=== PATIENT | female | born 1990 | race Caucasian/White ===

== ENCOUNTER 2016-08-05 18:43 | Emergency (ER) | payer OTHER ==
[~2016-08-05 18:43] MED LIST: ALBUTEROL0.09 MG/A2 INH; AMOXICILLIN500 MG PO; AMOXIL500 MG PO; ANTIVERT25 MG PO; ATARAX25 MG PO; ATIVAN0.5 MG PO; AUGMENTIN 500 M1 TAB PO; AUGMENTIN 875 M1 TA1 PO; BACTRIM DS 8001 TA1 PO; BENTYL10 MG PO; BIRTH CONTROL1 EAC1 PO; CATAFLAM50 MG PO; CIPROFLOXACIN500 MG PO; CLARITIN10 MG PO; CLEOCIN HCL150 MG PO; COMPAZINE10 MG PO; CYCLOBENZAPRINE10 MG PO; DIFLUCAN150 MG PO; FLAGYL500 MG PO; FLEXERIL10 MG PO; HYDROCODONE BIT1 T11 PO; HYDROXYZINE HCL25 MG PO; IBUPROFEN600 MG PO; LIDEX0.05% T; MOTRIN800 MG PO; Motrin,Rufen800 MG PO; NAPROSYN500 MG PO; NAPROXEN500 M1 PO; NASONEX0.05 MG/AC NS; PENICILLIN VK500 MG PO; PNV-SELECT1 TAB PO; PREDNISONE20 M1 PO; PROAIR HFA8.5 GM INH; PYRIDIUM200 MG PO; Percocet 325 MG1 TAB PO; SERTRALINE HYDR25 MG PO; TRI-SPRINTEC 281 TAB PO; VENTOLIN 02.5 MG/3 M INH; VENTOLIN0.09 MG/AC IH; ZITHROMAX Z PA250 MG PO; ZITHROMAX250 MG PO; ZOFRAN ODT4 MG SL; ZOFRAN4 MG PO; ZOLOFT50 MG PO; Zofran4 MG PO
[2016-08-05] MEDS ORDERED: KENALOG 0.1%80 GM T (20:04)
[2016-08-05] MEDS ORDERED: ALLERGY MEDICAT25 M1 PO (20:04)
== END 2016-08-05 20:38 | disposition home or self-care (01) ==
LOC: ED 18:43
DX: L24.7 Irritant contact dermatitis due to plants, except food (principal); F41.9 Anxiety disorder, unspecified

== ENCOUNTER 2016-10-10 18:22 | Emergency (ER) | payer OTHER ==
[~2016-10-10] VITALS: Ht 172.7 cm; Wt 104.3 kg
[~2016-10-10 18:22] MED LIST changes: +ALLERGY MEDICAT25 M1 PO; +KENALOG 0.1%80 GM T
[2016-10-10] MEDS ORDERED: PREDNISONE10 MG PO (20:16)
== END 2016-10-10 20:19 | disposition home or self-care (01) ==
LOC: ED 18:22
DX: S29.019A Strain of muscle and tendon of unspecified wall of thorax, initial encounter (principal); F17.200 Nicotine dependence, unspecified, uncomplicated; Z79.899 Other long term (current) drug therapy

== ENCOUNTER 2016-12-02 18:55 | Emergency (ER) | payer OTHER ==
[~2016-12-02] VITALS: Ht 175.2 cm; Wt 113.4 kg
[~2016-12-02 18:55] MED LIST changes: +PREDNISONE10 MG PO
[2016-12-02] MEDS ORDERED: ATIVAN1 MG PO (20:23)
== END 2016-12-02 22:03 | disposition home or self-care (01) ==
LOC: ED 18:55
DX: F41.1 Generalized anxiety disorder (principal); J45.909 Unspecified asthma, uncomplicated; Z79.899 Other long term (current) drug therapy

== ENCOUNTER 2017-04-08 17:06 | Emergency (ER) | payer OTHER ==
[~2017-04-08 17:06] MED LIST changes: +ATIVAN1 MG PO
[2017-04-08] MEDS ORDERED: TESSALON PERLE100 M1 PO (17:51)
[2017-04-08] MEDS ORDERED: CLARITIN-D 24 H1 TAB PO (17:51)
[2017-04-08] MEDS ORDERED: HYCODAN/HYDROMET5 ML PO (17:51)
== END 2017-04-08 17:46 | disposition home or self-care (01) ==
LOC: ED 17:06
DX: J06.9 Acute upper respiratory infection, unspecified (principal); R05 Cough; Z79.899 Other long term (current) drug therapy

== ENCOUNTER 2018-01-07 18:58 | Emergency (ER) | payer OTHER ==
[~2018-01-07] VITALS: Ht 170.1 cm; Wt 108.9 kg
[~2018-01-07 18:58] MED LIST changes: +CLARITIN-D 24 H1 TAB PO; +HYCODAN/HYDROMET5 ML PO; +TESSALON PERLE100 M1 PO
[2018-01-07] MEDS ORDERED: IBU800 MG PO (19:13)
== END 2018-01-07 19:20 | disposition home or self-care (01) ==
LOC: ED 18:58
DX: S90.32XA Contusion of left foot, initial encounter (principal); Z79.899 Other long term (current) drug therapy; W20.8XXA Other cause of strike by thrown, projected or falling object, initial encounter; Y93.89 Activity, other specified; Y92.89 Other specified places as the place of occurrence of the external cause; Y99.8 Other external cause status

== ENCOUNTER → 2018-10-12 | Outpatient (CLI) | payer OTHER ==
[~2018-10-12] MED LIST changes: +IBU800 MG PO
[2018-10-13 07:04] LABS: HEPATITIS B SURFACE AG Negative (Negative)
== END | disposition home or self-care (01) ==
LOC: LAB 09:21 → US 10:00
PROVIDERS: Internal Medicine Gastroenterology
DX: R94.5 Abnormal results of liver function studies (principal)

== ENCOUNTER 2020-02-29 09:07 | Emergency (ER) | payer OTHER ==
[~2020-02-29] VITALS: Wt 136.1 kg
[2020-02-29] MEDS ORDERED: PREDNISONE10 MG PO (09:31)
== END 2020-02-29 09:34 | disposition home or self-care (01) ==
LOC: ED 09:07
DX: L23.9 Allergic contact dermatitis, unspecified cause (principal); Z79.899 Other long term (current) drug therapy

== ENCOUNTER 2021-06-07 17:54 | Emergency (ER) | payer OTHER ==
[~2021-06-07] VITALS: Ht 172.7 cm; Wt 127.0 kg
[2021-06-07] MEDS ORDERED: NAPROSYN500 MG PO (21:47)
== END 2021-06-07 21:54 | disposition home or self-care (01) ==
LOC: ED 17:54
DX: S86.911A Strain of unspecified muscle(s) and tendon(s) at lower leg level, right leg, initial encounter (principal); Z79.899 Other long term (current) drug therapy; W18.39XA Other fall on same level, initial encounter; Y93.89 Activity, other specified; Y92.89 Other specified places as the place of occurrence of the external cause; Y99.8 Other external cause status

== ENCOUNTER → 2022-03-24 | Outpatient (CLI) | payer OTHER | END | disposition home or self-care (01) | LOC: RAD 14:23 | PROVIDERS: ATTEND Internal Medicine | DX: R05.9 Cough, unspecified (principal) ==